=== PATIENT | female | born 1985 | race Caucasian/White ===

== ENCOUNTER 2020-02-20 03:35 | Emergency (ER) | payer SELFPAY ==
--- NOTE | 2020-02-20 04:14 | ED Physician Documentation ---
PD HPI FEMALE - Stated complaint Stated Complaint: CRAMPING/F /PREG - Chief complaint Chief Complaint: Abd Pain - History obtained from History obtained from: Patient - History of Present Illness Timing - onset: How many days ago (2) Timing - details: Gradual onset, Intermittant Pain level max: 3 Pain level max: 0 Associated symptoms: No: Fever Contributing factors: OB-FABRICATION MIG WELDER History: G (4), P (3) Recently seen: Not recently seen - Additional information Additional information: Patient states she is approximately 4 to 5 weeks based on LMP, took home test few days go with (+) result, complains of pelvic cramping, intermittent, times two days. Also complains of vaginal spotting for past 1 to 2 days. Also complains of mild dizziness and generalized headache. Review of Systems Constitutional: reports: Reviewed and negative Cardiac: reports: Reviewed and negative Respiratory: reports: Reviewed and negative GI: denies: Abdominal Pain (suprapubic cramping but no abdominal pain per se), Nausea, Vomiting, Constipation, Diarrhea : reports: Now EGA (4-5 weeks). denies: Dysuria, Frequency Musculoskeletal: denies: Back pain PD PAST MEDICAL HISTORY - Past Medical History Past Medical History: No Cardiovascular: None Respiratory: None Neuro: None Endocrine/Autoimmune: None GI: None FABRICATION MIG WELDER: None : None HEENT: None Psych: None Musculoskeletal: None Derm: None - Past Surgical History Past Surgical History: Yes /FABRICATION MIG WELDER: section - Present Medications Home Medications: Ambulatory Orders Medication Instructions Recorded Confirmed Penicillin Vk 500 mg PO Q6H 09/22/13 09/22/13 traMADol [Ultram] 50 mg PO Q4-6H #10 tablet 09/22/13 Cyclobenzaprine [Flexeril] 10 mg PO TID PRN #20 tablet 09/09/16 HYDROcod/ACETAM 5/325 [[place] 5/325] 1 - 2 ea PO Q6H PRN #15 tablet 09/09/16 - Allergies Allergies/Adverse Reactions: Allergies Allergy/AdvReac Type Severity Reaction Status Date / Time No Known Drug Allergies Allergy Verified 02/20/20 03:53 - Social History Does the pt smoke?: No Smoking Status: Never smoker Does the pt drink ETOH?: No Does the pt have substance abuse?: No - Immunizations Immunizations are current?: Yes - POLST Patient has POLST: No PD ED PE NORMAL - Vitals Vital signs reviewed: Yes - General General: Alert and oriented X 3, No acute distress, Well developed/nourished - Cardiac Cardiac: RRR, No murmur - Respiratory Respiratory: No respiratory distress, Clear bilaterally - Abdomen Abdomen: Normal bowel sounds, Soft, Non tender, Non distended, No organomegaly - Back Back: No CVA TTP Results - Vitals Vitals: Vital Signs - 24 hr 02/20/20 02/20/20 02/20/20 03:50 04:27 06:10 Temperature 36.7 C Heart Rate 79 Respiratory 16 17 15 Rate Blood Pressure 109/68 O2 Saturation 100 02/20/20 02/20/20 06:16 07:07 Temperature Heart Rate 79 Respiratory 19 16 Rate Blood Pressure 112/51 L O2 Saturation 99 Oxygen O2 Source Room air - Labs Labs: Laboratory Tests 02/20/20 02/20/20 02/20/20 04:23 04:23 04:23 WBC 8.3 RBC 4.94 Hgb 13.8 Hct 41.6 MCV 84.2 MCH 27.9 MCHC 33.2 RDW 12.5 Plt Count 316 MPV 10.1 Neut # (Auto) 5.0 Lymph # (Auto) 2.5 Bath # (Auto) 0.6 Eos # (Auto) 0.1 Baso # (Auto) 0.0 Absolute Nucleated RBC 0.00 Nucleated RBC % 0.0 Sodium 134 L Potassium 3.5 Chloride 100 L Carbon Dioxide 24 Anion Gap 10.0 BUN 10 Creatinine 0.5 Estimated GFR (MDRD) 140 Glucose 101 H Calcium 8.9 Total Bilirubin 0.5 AST 22 ALT 33 Alkaline Phosphatase 91 Total Protein 8.0 Albumin 4.3 Globulin 3.7 Albumin/Globulin Ratio 1.2 Lipase 37 HCG, Quant 156.75 Urine Color Urine Clarity Urine pH Ur Specific Branch Urine Protein Urine Glucose (UA) Urine Ketones Urine Occult Blood Urine Nitrite Urine Bilirubin Urine Urobilinogen Ur Leukocyte Esterase Ur Microscopic Review Urine Culture Comments Blood Type 02/20/20 02/20/20 04:23 04:25 WBC RBC Hgb Hct MCV MCH MCHC RDW Plt Count MPV Neut # (Auto) Lymph # (Auto) Bath # (Auto) Eos # (Auto) Baso # (Auto) Absolute Nucleated RBC Nucleated RBC % Sodium Potassium Chloride Carbon Dioxide Anion Gap BUN Creatinine Estimated GFR (MDRD) Glucose Calcium Total Bilirubin AST ALT Alkaline Phosphatase Total Protein Albumin Globulin Albumin/Globulin Ratio Lipase HCG, Quant Urine Color YELLOW Urine Clarity CLEAR Urine pH 6.0 Ur Specific Branch 1.025 Urine Protein NEGATIVE Urine Glucose (UA) NEGATIVE Urine Ketones NEGATIVE Urine Occult Blood NEGATIVE Urine Nitrite NEGATIVE Urine Bilirubin NEGATIVE Urine Urobilinogen 0.2 (NORMAL) Ur Leukocyte Esterase NEGATIVE Ur Microscopic Review NOT INDICATED Urine Culture Comments NOT INDICATED Blood Type AB POSITIVE - Rads (name of study) pelvic US Radiology: Prelim report reviewed, See rad report PD MEDICAL DECISION MAKING - ED course Complexity details: reviewed results, re-evaluated patient, considered differential, d/w patient Departure - Departure Disposition: 01 Home, Self Care Clinical Impression: Threatened in early Condition: Good Instructions: ED Miscarriage Poss Follow-Up: Aicha Turner MD [Provider Admit Priv/Credential] - Within 1 week Discharge Date/Time: 02/20/20 07:08
[2020-02-20 04:31] LABS: BILIRUBIN,URINE NEGATIVE (NEGATIVE); GLUCOSE, URINE (UA) NEGATIVE (NEGATIVE); KETONES,URINE (UA) NEGATIVE (NEGATIVE); LEUKOCYTE ESTERASE, URINE NEGATIVE (NEGATIVE); NITRITE,URINE NEGATIVE (NEGATIVE); OCCULT BLOOD,URINE NEGATIVE (NEGATIVE); PROTEIN,URINE NEGATIVE (NEGATIVE); UROBILINOGEN,URINE 0.2 (NORMAL) E.U./dL (NORMAL)
[2020-02-20 04:35] LABS: BASOPHILS % (AUTO) 0.5 %; EOSINOPHILS # (AUTO) 0.1 10^3/uL (0.0-0.7); EOSINOPHILS % (AUTO) 1.2 %; HGB - HEMOGLOBIN 13.8 g/dL (12.0-16.0); LYMPHOCYTES # (AUTO) 2.5 10^3/uL (1.5-3.5); LYMPHOCYTES % (AUTO) 30.2 %; MEAN CORPUSCULAR HEMOGLOBIN 27.9 pg (27.0-31.0); MEAN CORPUSCULAR HGB CONC 33.2 g/dL (32.0-36.0); MEAN CORPUSCULAR VOLUME 84.2 fL (81.0-99.0); MEAN PLATELET VOLUME 10.1 fL (7.9-10.8); MONOCYTES # (AUTO) 0.6 10^3/uL (0.0-1.0); MONOCYTES % (AUTO) 7.1 %; NEUTROPHILS % (AUTO) 60.8 %; PLT - PLATELET COUNT 316 10^3/uL (130-450); RED BLOOD COUNT 4.94 10^6/uL (4.20-5.40); RED CELL DISTRIBUTION WIDTH 12.5 % (12.0-15.0); WHITE BLOOD COUNT 8.3 x10^3/uL (4.8-10.8)
[2020-02-20 04:36] LABS: CLARITY,URINE CLEAR (CLEAR)
[2020-02-20 04:45] LABS: ALBUMIN 4.3 g/dL (3.2-5.5); ALBUMIN/GLOBULIN RATIO 1.2 (1.0-2.2); BILIRUBIN,TOTAL 0.5 mg/dL (0.2-1.0); CALCIUM 8.9 mg/dL (8.5-10.3); CREATININE 0.5 mg/dL (0.4-1.0)
[2020-02-20 06:17] VITALS: BP 112/51
--- NOTE | 2020-02-20 09:56 | Ultrasound Report ---
PROCEDURE: OB First Trimester INDICATIONS: , vaginal bleeding, pelvic cramping OUTSIDE/PRIOR DATING DATA: Last menstrual period (LMP): 01/12/2020. LMP-based estimated date of delivery (BRANDON): 10/18/2020. First dating scan (date and location): 08/22/2019. Estimated date of delivery (BRANDON) from first dating scan: Not applicable TECHNIQUE: Real-time scanning was performed of the fetus and maternal pelvic organs, with image documentation. COMPARISON: None from this FINDINGS: Embryo: No findings of an intrauterine can be seen. Measurement variability in dating: +/- 4 weeks by LMP, +/- 7 days by mean sac diameter (use before 6 weeks gestation if crown-rump length not able to be measured), +/- 5 days by crown-rump length (6-12 weeks gestation). Maternal organs: Ovaries are unremarkable. Limited images through the kidneys demonstrate no hydron ephrosis. IMPRESSION: No findings of an intrauterine are seen. Given the history, this is felt most likely to be related to a completed spontaneous miscarriage. However, differential diagnosis would also include ec topic . Close clinical follow-up with serial beta hCG measurements are recommended, as clinically appropriate . Note: No significant discrepancy from the preliminary report. Reviewed by: Anuj Stevens MD on 02/20/2020 8:55 AM LOW Approved by: Anuj Stevens MD on 02/20/2020 8:55 AM LOW Station ID: [id number]
--- NOTE | 2020-02-20 10:07 | Ultrasound Report ---
PROCEDURE: OB Transvaginal INDICATIONS: , vaginal bleeding, pelvic cramping TECHNIQUE: Transvaginal scanning was performed. COMPARISON: None from this FINDINGS: Embryo: No findings of an intrauterine can be seen. Measurement variability in dating: +/- 4 weeks by LMP, +/- 7 days by mean sac diameter (us e before 6 weeks gestation if crown-rump length not able to be measured), +/- 5 days by crown-rump le ngth (6-12 weeks gestation). Maternal organs: Ovaries are unremarkable. Limited images through the k idneys demonstrate no hydronephrosis. IMPRESSION: No findings of an intrauterine are se en. Given the history, this is felt most likely to be related to a completed spontaneous miscarriage. However, differential diagnosis would also include ectopic . Close clinical follow-up with serial beta hCG measurements are recommended, as clinically appropriate. Note: No significant dis crepancy from the preliminary report. Reviewed by: Anuj Stevens MD on 02/20/2020 9:06 AM LOW Approved by: Anuj Stevens MD on 02/20/2020 9:06 AM LOW Station ID: [id number]
== END 2020-02-20 07:08 | disposition home or self-care (01) ==
LOC: ED 03:35
DX: O20.0 Threatened abortion (principal); Z3A.01 Less than 8 weeks gestation of pregnancy
CPT/HCPCS: 36415; 76801; 76817; 80053; 81001; 81003; 83690; 84702; 85025; 86900; 86901; 87086; 99284

== ENCOUNTER 2020-02-24 08:00 | Outpatient (CLI) | payer SELFPAY ==
[2020-02-25 10:44] LABS: MUDS CUTOFF CONCENTRATIONS CUTOFF CONC BELOW:
[2020-02-25 11:12] LABS: AMPHETAMINE SCREEN,URINE NEGATIVE (NEGATIVE); BENZODIAZEPINES SCREEN, URINE NEGATIVE (NEGATIVE); COCAINE SCREEN URINE NEGATIVE (NEGATIVE); METHADONE SCREEN, URINE NEGATIVE (NEGATIVE); METHAMPHETAMINES SCREEN, URINE NEGATIVE (NEGATIVE); OPIATE SCREEN, URINE NEGATIVE (NEGATIVE); OXYCODONE SCREEN, URINE NEGATIVE (NEGATIVE); PROPOXYPHENE SCREEN, URINE NEGATIVE (NEGATIVE); TRICYCLIC ANTIDEPRESSANT,URINE NEGATIVE (NEGATIVE)
== END 2020-02-24 23:59 | disposition home or self-care (01) ==
LOC: LAB.R 08:00
PROVIDERS: ATTEND Advanced Practice Midwife
DX: Z32.01 Encounter for pregnancy test, result positive (principal)
CPT/HCPCS: 80306

== ENCOUNTER 2020-03-14 18:29 | Outpatient (CLI) | payer SELFPAY ==
--- NOTE | 2020-03-15 10:24 | Ultrasound Report ---
PROCEDURE: OB First Trimester INDICATIONS: POSITIVE TEST OUTSIDE/PRIOR DATING DATA: Last menstrual period (LMP): 01/12/2020. LMP-based estimated date of delivery (BRANDON): 10/18/2020. First dating scan (date and location): 03/14/2020 Estimated date of delivery (BRANDON) from first dating scan: 10/30/2020. TECHNIQUE: Real-time scanning was performed of the fetus and maternal pelvic organs, with image documentation. COMPARISON: 02/20/2020 FINDINGS: Embryo: There is been interval development of an endometrial fluid collection at the fundus with mil d decidual response. The mean gestational sac diameter is 2.2 cm. A pole and yolk sac are prese nt. The pole has an average crown-rump length of 1.1 cm which corresponds to a 7 week 1 day ges tation. A normal size yolk sac is present. There is detectable cardiac activity and the fetus at a ra te of 155 bpm. A very small perigestational hemorrhage is present, likely implantation bleed. Measurement variability in dating: +/- 4 weeks by LMP, +/- 7 days by mean sac diameter (use before 6 weeks gestation if crown-rump length not able to be measured), +/- 5 days by crown-rump length (6-12 weeks gestation). Maternal organs: Maternal cervix is closed. Ovaries are normal with luteum on the right ovary.. Clark ited images through the kidneys demonstrate no hydronephrosis. IMPRESSION: 1. Single viable intrauterine with a gestational age of 7 weeks, 1 day, and estimated due d ate of 2020. 2. Right ovarian corpus luteum. Reviewed by: Calista Pack MD on 03/15/2020 10:23 AM PDT Approved by: Calista Pack MD on 03/15/2020 10:23 AM PDT Station ID: [id number]
--- NOTE | 2020-03-15 10:25 | Ultrasound Report ---
PROCEDURE: OB Transvaginal INDICATIONS: + PREG TEST. F/U US OUTSIDE/PRIOR DATING DATA: Last menstrual period (LMP): 01/12/2020. LMP-based estimated date of delivery (BRANDON): 10/18/2020. First dating scan (date and location): 03/14/2020 Estimated date of delivery (BRANDON) from first dating scan: 10/30/2020. TECHNIQUE: Real-time scanning was performed of the fetus and maternal pelvic organs, with image documentation. Transvaginal imaging was performed. COMPARISON: 02/20/2020 FINDINGS: Embryo: There is been interval development of an endometrial fluid collection at the fundus with mil d decidual response. The mean gestational sac diameter is 2.2 cm. A pole and yolk sac are prese nt. The pole has an average crown-rump length of 1.1 cm which corresponds to a 7 week 1 day ges tation. A normal size yolk sac is present. There is detectable cardiac activity and the fetus at a ra te of 155 bpm. A very small perigestational hemorrhage is present, likely implantation bleed. Measurement variability in dating: +/- 4 weeks by LMP, +/- 7 days by mean sac diameter (use before 6 weeks gestation if crown-rump length not able to be measured), +/- 5 days by crown-rump length (6-12 weeks gestation). Maternal organs: Maternal cervix is closed. Ovaries are normal with luteum on the right ovary.. Clark ited images through the kidneys demonstrate no hydronephrosis. IMPRESSION: 1. Single viable intrauterine with a gestational age of 7 weeks, 1 day, and estimated due d ate of 2020. 2. Right ovarian corpus luteum. Reviewed by: Calista Pack MD on 03/15/2020 10:24 AM PDT Approved by: Calista Pack MD on 03/15/2020 10:24 AM PDT Station ID: [id number]
== END 2020-03-14 18:30 | disposition home or self-care (01) ==
LOC: DI 18:29
PROVIDERS: ATTEND Advanced Practice Midwife
DX: O34.81 Maternal care for other abnormalities of pelvic organs, first trimester (principal); N83.11 Corpus luteum cyst of right ovary; Z3A.01 Less than 8 weeks gestation of pregnancy
CPT/HCPCS: 76801; 76817

== ENCOUNTER 2020-05-02 08:00 | Outpatient (CLI) | payer BC ==
[2020-05-02 15:40] LABS: BILIRUBIN,URINE NEGATIVE (NEGATIVE); GLUCOSE, URINE (UA) NEGATIVE (NEGATIVE); KETONES,URINE (UA) NEGATIVE (NEGATIVE); LEUKOCYTE ESTERASE, URINE NEGATIVE (NEGATIVE); NITRITE,URINE NEGATIVE (NEGATIVE); OCCULT BLOOD,URINE MODERATE (NEGATIVE); PH,URINE 6.5 PH (5.0-7.5); PROTEIN,URINE NEGATIVE (NEGATIVE); UROBILINOGEN,URINE 0.2 (NORMAL) E.U./dL (NORMAL)
[2020-05-02 15:42] LABS: CLARITY,URINE HAZY (CLEAR)
[2020-05-02 15:58] LABS: BACTERIA,URINE None Seen /HPF (None Seen); SQUAMOUS EPITHELIAL CELL,UR MOD Squamous (<= Few)
== END 2020-05-02 23:59 | disposition home or self-care (01) ==
LOC: LAB.R 08:00
PROVIDERS: ATTEND Advanced Practice Midwife
DX: Z34.90 Encounter for supervision of normal pregnancy, unspecified, unspecified trimester (principal); Z36.89 Encounter for other specified antenatal screening
CPT/HCPCS: 81001; 87086

== ENCOUNTER 2020-06-06 13:03 | Outpatient (CLI) | payer BC ==
[2020-06-07 12:23] LABS: HEPATITIS C ANTIBODY NON-REACTIVE (NON-REACTIVE)
[2020-06-07 13:52] LABS: HIV AG/AB 4TH GEN NON-REACTIVE (NON-REACTIVE)
== END 2020-06-06 13:04 | disposition home or self-care (01) ==
LOC: LAB.N 13:03
PROVIDERS: ATTEND Advanced Practice Midwife
DX: Z34.90 Encounter for supervision of normal pregnancy, unspecified, unspecified trimester (principal); Z36.89 Encounter for other specified antenatal screening
CPT/HCPCS: 36415; 81599; 84702; 86787; 86803; 87389

== ENCOUNTER 2020-06-18 17:43 | Outpatient (CLI) | payer BC ==
--- NOTE | 2020-06-19 12:21 | Ultrasound Report ---
PROCEDURE: OB Detailed Eval INDICATIONS: SUPERVISION OF OUTSIDE/PRIOR DATING DATA: Last menstrual period (LMP): 01/12/2020. LMP-based estimated date of delivery (BRANDON): 10/18/2020. First dating scan (date and location): 02/20/2020. Follow-up scan on 03/14/2020. Estimated date of delivery (BRANDON) from first dating scan: 10/30/2020. TECHNIQUE: Real-time scanning was performed of the fetus, with image documentation and biometric measurements. Endovaginal scanning: Not performed. COMPARISON: 03/14/2020 FINDINGS: General: A single living intrauterine gestation is present. Presentation: Variable Placenta: Placental position is anterior, without previa. Amniotic fluid index: 13.6 cm, normal for gestational age. heart rate: 157 beats per minute. Maternal cervical canal: 4 cm long; normal length is 2.5 cm or more. biometrics: Biparietal diameter: 5.2 cm, 21 weeks 6 days Head circumference: 19.1 cm, 21 weeks 3 days Abdominal circumference: 16.3 cm, 21 weeks 3 days Femur length: 3.3 cm, 20 weeks 4 days Estimated gestational age from initial scan: 20 weeks 6 days Composite gestational age from present scan: 21 weeks 2 days Estimated weight and percentile: 399 g, 59th percentile Measurement variability in biometric dating: +/- 10 days from 12-20 weeks gestation, +/- 2 weeks from 20-30 weeks gestation, +/- 3 weeks at 30 weeks gestation or later. Anatomic survey: Neuro: Ventricles are normal at less than 10 mm. Cisterna magna is normal at 3-11 mm. Cerebellum i s normal in size and morphology. Nuchal skin fold: Not well seen Face: Face is not well seen. Orbits are normal. Spine: Not well seen. Heart: 4-chambered heart is present, with normal ventricular outflow tracts. Diaphragm: Diaphragm is intact. Stomach: Left-sided stomach is present. Kidneys: No hydronephrosis. Normal is less than 5 mm in 2nd trimester, less than 7 mm in 3rd trimester. Cord: 3 vessel cord has orthotopic insertion. Bladder: Normal in size. Extremities: All 4 extremities are visualized. IMPRESSION: 1. Ambriz living intrauterine at 21 weeks 2 days based on today's ultrasound. This is co ncordant with the first trimester ultrasound. There is expected interval growth. 2. Normal placenta and amniotic fluid. 3. facial structures and spine are not well seen due to positioning. Otherwise normal giovany tomic survey. -Follow-up OB ultrasound is recommended. Reviewed by: Daron Coto MD on 06/19/2020 11:20 AM [facility] Approved by: Daron Coto MD on 06/19/2020 11:20 AM [facility] Station ID: [id number]
== END 2020-06-18 17:44 | disposition home or self-care (01) ==
LOC: DI 17:43
PROVIDERS: ATTEND Advanced Practice Midwife
DX: Z34.92 Encounter for supervision of normal pregnancy, unspecified, second trimester (principal); Z36.89 Encounter for other specified antenatal screening

== ENCOUNTER 2020-07-23 14:36 | Outpatient (CLI) | payer BC ==
--- NOTE | 2020-07-23 17:35 | Ultrasound Report ---
PROCEDURE: OB F/U or Repeat INDICATIONS: F/U FAS, SUPERVISION OF OUTSIDE/PRIOR DATING DATA: Last menstrual period (LMP): 01/12/2020. LMP-based estimated date of delivery (BRANDON): 10/18/2020. First dating scan (date and location): 02/20/2020. Estimated date of delivery (BRANDON) from first dating scan: 10/30/2020. TECHNIQUE: Real-time scanning of the fetus was performed for completion of anatomy scan. COMPARISON: ultrasounds dated between 02/20/2020 and 06/18/2020 FINDINGS: Again noted is a single live intrauterine with heart rate of 157 bpm. MARYLIN measures 18 .5 cm. The cervix is closed and measures 4.6 cm. Fetus is in transverse maternal left position. The p lacenta is anterior. Transverse and longitudinal images of the spine and skin line were performed as well as images of the diaphragm, kidneys, and nose/lips and a facial profile view. These images were appropriate without a natomic abnormality. Unremarkable appearance of the adnexa. IMPRESSION: Unremarkable appearance of the spine, skin line, nose/lips, facial profile, diaphragm, and kidneys. T his completes survey. MARYLIN measures 18.5 cm. heart rate of 157 bpm. Reviewed by: Yovany Shin DO on 07/23/2020 4:33 PM [facility] Approved by: Yovany Shin DO on 07/23/2020 4:33 PM [facility] Station ID: [id number]
== END 2020-07-23 14:37 | disposition home or self-care (01) ==
LOC: DI 14:36
PROVIDERS: ATTEND Advanced Practice Midwife
DX: Z34.90 Encounter for supervision of normal pregnancy, unspecified, unspecified trimester (principal)

== ENCOUNTER 2020-08-15 14:25 | Outpatient (CLI) | payer BC ==
[2020-08-15 18:22] LABS: BASOPHILS % (AUTO) 0.3 %; EOSINOPHILS % (AUTO) 0.5 %; HGB - HEMOGLOBIN 12.9 g/dL (12.0-16.0); LYMPHOCYTES # (AUTO) 1.3 10^3/uL (1.5-3.5); LYMPHOCYTES % (AUTO) 17.1 %; MEAN CORPUSCULAR HEMOGLOBIN 27.8 pg (27.0-31.0); MEAN CORPUSCULAR HGB CONC 32.4 g/dL (32.0-36.0); MEAN CORPUSCULAR VOLUME 85.8 fL (81.0-99.0); MEAN PLATELET VOLUME 10.1 fL (7.9-10.8); MONOCYTES # (AUTO) 0.2 10^3/uL (0.0-1.0); MONOCYTES % (AUTO) 3.3 %; NEUTROPHILS # (AUTO) 5.8 10^3/uL (1.5-6.6); NEUTROPHILS % (AUTO) 78.4 %; PLT - PLATELET COUNT 290 10^3/uL (130-450); RED BLOOD COUNT 4.64 10^6/uL (4.20-5.40); RED CELL DISTRIBUTION WIDTH 13.2 % (12.0-15.0); WHITE BLOOD COUNT 7.4 x10^3/uL (4.8-10.8)
[2020-08-16 11:58] LABS: HEPATITIS B SURFACE ANTIGEN NON-REACTIVE (NON-REACTIVE)
[2020-08-16 14:26] LABS: HIV AG/AB 4TH GEN NON-REACTIVE (NON-REACTIVE)
== END 2020-08-15 14:26 | disposition home or self-care (01) ==
LOC: LAB.N 14:25
PROVIDERS: ATTEND Advanced Practice Midwife
DX: Z34.90 Encounter for supervision of normal pregnancy, unspecified, unspecified trimester (principal); Z36.89 Encounter for other specified antenatal screening
CPT/HCPCS: 36415; 81599; 82950; 85025; 86592; 86762; 86850; 86900; 86901; 87340; 87389

== ENCOUNTER 2020-08-29 14:23 | Outpatient (CLI) | payer BC ==
[2020-08-29 14:54] LABS: GTT GLUCOSE,FASTING 87 mg/dL (70-100)
== END 2020-08-29 14:24 | disposition home or self-care (01) ==
LOC: LAB 14:23
PROVIDERS: ATTEND Advanced Practice Midwife
DX: O99.810 Abnormal glucose complicating pregnancy (principal)
CPT/HCPCS: 36415; 82951; 82952

== ENCOUNTER 2020-09-24 20:22 | Outpatient (CLI) | payer BC ==
[2020-09-24 20:39] VITALS: BP 118/70
[2020-09-24 21:20] LABS: RUPTURE OF MEMBRANES PLUS POSITIVE (NEGATIVE)
[2020-09-24] MEDS ORDERED: MAGNESIUM SULFATE 4 GRAM 4 GM/50 ML BAG IV ONE (21:51)
[2020-09-24] MEDS ORDERED: MAGNESIUM SULFATE IN WATER 20 GM/500 ML IV.SOLN IV SCH (22:00)
[2020-09-24] MEDS ORDERED: LACTATED RINGERS 1,000 ML IV ONE (22:00)
[2020-09-24] MEDS ORDERED: BETAMETHASONE 30 MG/5 ML VIAL IM ONE (22:09)
[2020-09-24] MEDS ORDERED: AMPICILLIN 2 GM in SODIUM CHLORIDE 0.9% MINIBAG 100 ML IV SCH (22:30)
[2020-09-24] MEDS ORDERED: valACYclovir 500 MG TABLET PO SCH (23:00)
--- NOTE | 2020-09-24 23:08 | PREOP HISTORY & PHYSICAL ---
DATE OF SERVICE: 09/25/2020 Physician: Armando Julian MD IDENTIFICATION: The patient is a 34-year-old G4, P3, female whose EDC is 10/30/2020. This makes her 34 weeks and 6 days. CHIEF COMPLAINT: Rupture of membranes. HISTORY OF PRESENT ILLNESS: At home this evening, she developed a gush of fluid from her vagina at roughly 8 o'clock this evening. She presented here and had ROM plus performed, which was positive. She notes good motion. This has not shown any complications at this time. She has had deliveries of 37, 38, and 40 weeks EGA. Of note is the fact that she has a history of FOB with herpes simplex virus, but denies any symptoms at this time. PAST MEDICAL HISTORY: Unremarkable. She denies any hypertensive, diabetic, cardiac or pulmonary disease. PAST SURGICAL HISTORY: None. ALLERGIES: NONE KNOWN. CURRENT MEDICATIONS: vitamins. SOCIAL: FOB has hx of HSV This has apparently been complicated with gestational diabetes, which has been well controlled. PHYSICAL EXAMINATION GENERAL: Well-developed, well-nourished female, in no acute distress. She does not appear to be having any strong contractions. HEENT: Pupils equal and round. Extraocular muscles are intact. NECK: Thyroid is not palpably enlarged. HEART: Regular rate and rhythm without murmurs. LUNGS: Lung abernathy are clear without rales or wheezes. BACK: No spinal or CVA tenderness. ABDOMEN: Uterus is nontender. PELVIC: Cervical examination shows to be 2+. She is 90% effaced, 0 station, vertex presentation. She has had ROM plus. IMPRESSION: A 34-year-old G4, P3 female at 34 weeks and 6 days, spontaneous rupture of membranes. PLAN: Will start ampicillin 2 grams and administer betamethasone 12.5. Will also start her on magnesium, 4 gram load with 2 grams an hour. give 1 gm ValtrexWe discussed the case with Mandy Telles at [facility] and they are accepting. TD: 09/24/2020 22:09 MTDD
--- OUTSIDE RECORDS SUMMARY | 2020-10-04 20:33 | EXTERNAL MEDICAL SUMMARY RPT | Continuity of Care Document ---
:1985 Demographics Phone Unavailable Preferred Language Unknown Marital Status Unknown Druze Affiliation Unknown Race Unknown Ethnic Group Unknown Author Organization [place] Address [address] [place] [address] Phone Problems date description facility [id number] Encounter for observation for other [facility] suspected diseases and conditions ruled out [id number] Other specified related [facility] conditions, second trimester Social History date description facility [id number]
== END 2020-09-24 22:50 | disposition short-term general hospital (02) ==
LOC: WFO 20:22 → FBP 20:23 → WFO 22:50
PROVIDERS: ATTEND Obstetrics & Gynecology
DX: O42.913 Preterm premature rupture of membranes, unspecified as to length of time between rupture and onset of labor, third trimester (principal); E11.8 Type 2 diabetes mellitus with unspecified complications; Z3A.34 34 weeks gestation of pregnancy
CPT/HCPCS: 84112; 96372; 96374; 96375; A9270; J7120; 99214; J3475

== ENCOUNTER 2020-11-11 14:42 | Outpatient (CLI) | payer BC ==
[2020-11-11 14:59] LABS: BASOPHILS % (AUTO) 0.5 %; EOSINOPHILS # (AUTO) 0.3 10^3/uL (0.0-0.7); EOSINOPHILS % (AUTO) 3.3 %; HCT - HEMATOCRIT 43.2 % (37.0-47.0); HGB - HEMOGLOBIN 13.8 g/dL (12.0-16.0); LYMPHOCYTES # (AUTO) 2.2 10^3/uL (1.5-3.5); LYMPHOCYTES % (AUTO) 27.5 %; MEAN CORPUSCULAR HEMOGLOBIN 26.6 pg (27.0-31.0); MEAN CORPUSCULAR HGB CONC 31.9 g/dL (32.0-36.0); MEAN CORPUSCULAR VOLUME 83.4 fL (81.0-99.0); MEAN PLATELET VOLUME 9.7 fL (7.9-10.8); MONOCYTES # (AUTO) 0.4 10^3/uL (0.0-1.0); MONOCYTES % (AUTO) 4.8 %; NEUTROPHILS # (AUTO) 5.1 10^3/uL (1.5-6.6); NEUTROPHILS % (AUTO) 63.6 %; PLT - PLATELET COUNT 348 10^3/uL (130-450); RED BLOOD COUNT 5.18 10^6/uL (4.20-5.40); RED CELL DISTRIBUTION WIDTH 13.7 % (12.0-15.0)
== END 2020-11-11 14:43 | disposition home or self-care (01) ==
LOC: LAB 14:42
PROVIDERS: ATTEND Obstetrics & Gynecology
DX: Z01.812 Encounter for preprocedural laboratory examination (principal); Z86.32 Personal history of gestational diabetes; Z20.822 Contact with and (suspected) exposure to COVID-19
CPT/HCPCS: 36415; 85025

== ENCOUNTER 2020-11-15 10:20 | Day surgery (SDC) | payer BC ==
[~2020-11-15 10:20] MED LIST: ACETAMINOPHEN 1,000 MG/100 ML 100 ML IV ONE; CELECOXIB 100 MG CAPSULE PO ONE; GABAPENTIN 400 MG CAPSULE ONE
--- OUTSIDE RECORDS SUMMARY | 2020-11-15 10:22 | EXTERNAL MEDICAL SUMMARY RPT | Continuity of Care Document ---
:1985 Demographics Phone Unavailable Preferred Language Unknown Marital Status Unknown Bahai Affiliation Unknown Race Unknown Ethnic Group Unknown Author Organization [place] Address [address] [place] [address] Phone Problems date description facility [id number] Other specified related [facility] conditions, second trimester [id number] Encounter for observation for other [facility] suspected diseases and conditions ruled out
[2020-11-15 10:50] LABS: HCG UR QUAL NEGATIVE
[2020-11-15] MEDS ORDERED: LACTATED RINGERS 1,000 ML IV ONE ×2 (10:54→13:00)
--- NOTE | 2020-11-15 11:25 | ANESTHESIA ---
Pre-Anesthesia VS, & Labs - Diagnosis deesires sterilization - Procedure laparoscopic salpingectomy Vital Signs: Temp Pulse Resp BP Pulse Ox 36.4 C L 68 18 115/58 L 96 11/15/20 10:34 11/15/20 10:34 11/15/20 10:34 11/15/20 10:34 11/15/20 10:34 Height: 5 ft 1 in Weight (kg): 90 kg Body Mass Index: 37.5 BMI Classification: Obese - NPO >8 hours Last Fluid Intake: sips with eras meds - Is Patient ?: No - Lab Results Current Lab Results: Laboratory Tests 11/15/20 11:02: POC Whole Bld Glucose 98 Lab results reviewed: Yes Home Medications and Allergies Home Medications: Ambulatory Orders Acetaminophen [Tylenol] 650 mg PO Q6H PRN 11/14/20 Ibuprofen [Motrin] 600 mg PO Q6H PRN 11/14/20 Acetaminophen [Tylenol] 650 mg PO Q6H PRN 11/14/20 Ibuprofen [Motrin] 600 mg PO Q6H PRN 11/14/20 Allergies/Adverse Reactions: Allergies Allergy/AdvReac Type Severity Reaction Status Date / Time No Known Drug Allergies Allergy Verified 02/20/20 03:53 Anes History & Medical History - Anesthetic History Anesthesia Complications: reports: No previous complications Family history of Anesthesia Complications: Denies Family history of Malignant Hyperthermia: Denies - Medical History Cardiovascular: reports: None Pulmonary: reports: None Gastrointestinal: reports: None Urinary: reports: None Neuro: reports: None Musculoskeletal: reports: None Endocrine/Autoimmune: reports: None Blood Disorders: reports: None Skin: reports: Psoriasis Smoking Status: Never smoker History of Cancer?: No - Surgical History Gynecologic: reports: section Exam General: Alert, Oriented x3, Cooperative Dental: WNL Mouth Openin Fingerbreadth Neck Mobility: Normal Mallampati classification: II Thyromental Distance: 4-6 cm Respiratory: Lungs clear, Normal breath sounds, No respiratory distress Cardiovascular: Regular rate Neurological: Normal speech Mental/Cognitive Status: Alert/Oriented X3, Normal for patient Cognitive Status: Within normal limits Plan Anesthesia Type: General Consent for Procedure(s) Verified and Reviewed: Yes Code Status: Attempt Resuscitation ASA classification: 2-Mild systemic disease Is this case an emergency?: No
[2020-11-15] MEDS ORDERED: ATROPINE ABBOJECT 1 MG/10 ML SYRINGE IVP PRN (11:27)
[2020-11-15] MEDS ORDERED: ONDANSETRON 4 MG/2 ML VIAL IVP PRN (11:27)
[2020-11-15] MEDS ORDERED: HYDROmorphone 0.5 MG/0.5 ML SYRINGE IVP PRN (11:27)
[2020-11-15] MEDS ORDERED: ePHEDrine 50 MG/ML VIAL IVP PRN (11:27)
[2020-11-15] MEDS ORDERED: METOCLOPRAMIDE 10 MG/2 ML VIAL IVP PRN (11:27)
[2020-11-15] MEDS ORDERED: MORPHINE 2 MG/ML CARPUJECT IVP PRN (11:27)
[2020-11-15] MEDS ORDERED: NALOXONE 0.4 MG/ML VIAL IVP PRN (11:27)
[2020-11-15] MEDS ORDERED: fentaNYL 100 MCG/2 ML VIAL IVP PRN (11:27)
[2020-11-15] MEDS ORDERED: LACTATED RINGERS 1,000 ML IV SCH (12:00)
[2020-11-15] MEDS ORDERED: LIDOCAINE MPF 2%-EPI 1:200000 20 ML VIAL ONE (13:35)
[2020-11-15] MEDS ORDERED: BUPIVACAINE 0.5% PF 30 ML VIAL ONE (13:35)
[2020-11-15] MEDS ORDERED: MIDAZOLAM 2 MG/2 ML VIAL ONE (13:47)
[2020-11-15] MEDS ORDERED: PROPOFOL 200 MG/20 ML VIAL IVP ONE (13:48)
[2020-11-15] MEDS ORDERED: fentaNYL 100 MCG/2 ML VIAL ONE (13:49)
[2020-11-15] MEDS ORDERED: LIDOCAINE-MPF 2% 5 ML VIAL ONE (13:49)
[2020-11-15] MEDS ORDERED: ROCURONIUM 50 MG/5 ML VIAL ONE (13:49)
[2020-11-15] MEDS ORDERED: DEXAMETHASONE 4 MG/ML VIAL ONE (14:06)
[2020-11-15] MEDS ORDERED: ONDANSETRON 4 MG/2 ML VIAL ONE ×2 (14:06→16:54)
[2020-11-15] MEDS ORDERED: ePHEDrine 50 MG/ML VIAL IVP ONE (14:15)
[2020-11-15] MEDS ORDERED: LIDOCAINE MPF 2%-EPI 1:200000 20 ML VIAL SUBQ ONE ×2 (14:24)
[2020-11-15] MEDS ORDERED: BUPIVACAINE 0.5% PF 30 ML VIAL SUBQ ONE ×2 (14:24)
[2020-11-15] MEDS ORDERED: NEOSTIGMINE 1 MG/1 ML 10 ML MDV ONE (14:32)
[2020-11-15] MEDS ORDERED: GLYCOPYRROLATE 1 MG/5 ML VIAL ONE (14:32)
--- NOTE | 2020-11-15 15:10 | OPERATIVE REPORT ---
Operative Report - General Procedure Date: 11/15/20 Planned Procedure: Laparoscopic bilateral salpingectomy Pre-Op Diagnosis: Desires sterilization Procedure Performed: Bilateral salpingectomy Post Op Diagnosis: Same - Procedure Note Primary Surgeon: Lima Turner MD Secondary Surgeon: rAmando Julian MD Anesthesia Provider: Cornelius Carmona CRNA Pathology: Bilateral fallopian tubes IV Fluids (mL): 100 Estimated Blood Loss (mL): 10 Urine Output (mL): 50 Indications: The patient is a 34-year-old here for postop care and preoperative assessment for bilateral tubal ligation. The patient had been followed by midwifery service until approximately 34 and 6 weeks estimate gestational age after she underwent PPROM. She delivered at [facility]. She had a boy weighing 6 pounds 9.8 ounces who spent 1 week in the NICU. EPDS score is 8. She denies depression. She is struggling with managing 3 children, especially one child with special needs. Not feeling tremendous support from her spouse, however she is coping well. She is interested in tubal ligation. She was provided with a number of potential dates for the procedure and she is requesting November 15. She has no bleeding at present and not in any pain. Findings: Normal appearing uterus, fallopian tubes, and ovaries Complications: None - Other Other Information/Narrative: Risks benefits and alternatives of the procedure were reviewed. Consent was again confirmed. Patient was brought to the operating room and underwent general anesthesia. She was placed in dorsal lithotomy position with legs resting in yellowfin stirrups. SCDs were in place and activated. Prior to prepping, a speculum was placed and pap smear was collected. Instruments were then removed from the vagina. She was then prepped and draped in the usual sterile fashion. Surgical timeout was performed. Bimanual exam was performed. Sterile speculum was placed. The cervix was visualized. Uterus sounded to 6.5 cm. The Humi uterine manipulator was placed. The base of the umbilicus was anesthetized with intradermal injection of 1% lidocaine mixed with 0.5% Marcaine with epinephrine. A 5 mm skin incision was made with a scalpel. A 5 mm blunt trocar was inserted under direct visualization using Visiport. Once the port was confirmed to be placed intraperitoneally, the abdomen was insufflated to 15 mmHg with CO2 gas Exploration of the abdomen and pelvis was confirmed that no injury was sustained with placement of the trocar. Two additional 5 mm ports were placed in the right and left lower quadrants, taking care to avoid the epigastric arteries, while under direct visualization via laparoscopic guidance. The abdomen was explored with the laparoscope, with findings as noted. The left fallopian tube was grasped and elevated at the fimbriated end. The underlying mesosalpinx was sealed and resected to the insertion point on the uterine cornua using the Ligasure device. The tube was then sealed and transected at the insertion point at the cornua. The tube was removed from the pelvis through the lateral port. The procedure was repeated on the right side. Good hemostasis was noted. The abdomen was partially desufflated. Pedicles were observed under decreased pressure and good hemostasis was again confirmed. Abdomen was then completely desufflated. All instruments were removed from the abdomen. Skin was closed with interrupted subcuticular stitches using 4-0 Monocryl. Dermabond was ap plied over the suture sites. The Humi manipulator was removed from the uterus. Again, good hemostasis was noted. The final sponge needle and instrument counts were correct at completion of the procedure patient was awakened taken to the postanesthesia care unit in stable condition. Dr. Juilan assisted with suturing and retraction.
--- NOTE | 2020-11-15 16:11 | ANESTHESIA POST OP EVALUATION ---
Anesthesia Post Eval - Post Anesthesia Eval Vitals: Last Vital Signs Temp 36.3 C L 11/15/20 16:02 Pulse 62 11/15/20 16:02 Resp 11 L 11/15/20 16:02 BP 110/55 L 11/15/20 16:02 Pulse Ox 95 11/15/20 16:02 CV Function Including HR & BP: Stable Pain Control: Satisfactory Nausea & Vomiting: Negative Mental Status: Baseline Respiratory Status: Airway Patent Hydration Status: Satisfactory Anesthesia Complications: None
[2020-11-15 16:42] VITALS: BP 115/52
== END 2020-11-15 10:21 | disposition home or self-care (01) ==
LOC: SDS 10:20
PROVIDERS: ATTEND Obstetrics & Gynecology
PROC: 0UT74ZZ Resection of Bilateral Fallopian Tubes, Percutaneous Endoscopic Approach (ICD-10-PCS; principal; 2020-11-15 12:00)
DX: Z30.2 Encounter for sterilization (principal); E66.9 Obesity, unspecified; Z68.37 Body mass index [BMI] 37.0-37.9, adult
CPT/HCPCS: 58661; 81025; A9270; J0131; J7120